=== PATIENT | female | born 1980 | race Two or more races ===

== ENCOUNTER → 2016-09-15 | Outpatient (CLI) | payer OTHER ==
--- NOTE | ~2016-09-15 | CR242 ---
[facility] A Service of [facility] & [facility] RADIOLOGY TEXT RESULTS PATIENT: FRANCES LYNCH LOCATION: [facility] : [birth year] UNIT #: [id number] AGE: [address]: MAYELA Mitchell APRN SEX: F ORDER DR: [id number] [facility] [address]. [place], [place] [address] [id number] O MR#: [id number] #: [id number] NAME: FRANCES LYNCH : 1980 SEX: F STUDY DATE/TIME: 09/15/2016 10:59 UNIT: [facility] ROOM: STUDY DESCRIPTION: CR Thoracic Spine 2 Views Attending Physician: Mayela Nichole Aprn Referring Physician: Mayela Nichole Aprn Ordering Physician: Mayela Nichole Aprn Primary Care Physician: Mayela Nichole Aprn MEDICAL IMAGING REPORT This report is preliminary unless electronic signature is present EXAM Thoracic spine series. HISTORY Upper and lower back pain for the past 2 months. TECHNIQUE 3 views of the thoracic spine were obtained. FINDINGS AP and lateral examination of the dorsal segment shows normal mineralization and a satisfactory anatomical dorsal kyphosis. All body heights, interspaces, and posterior elements are normal anatomically without any indication of malignancy, trauma, unusual paraspinal soft tissue density mass, or congenital defect. IMPRESSION Normal thoracic spine. Dictated by... Kyler Morris M.D. THIS IS AN ELECTRONICALLY VERIFIED REPORT Kyler Morris M.D. at 09/15/2016 4:29 PM DAMIAN/iza TD: 09/15/2016 16:17 JOB #: [id number] MEDICAL IMAGING REPORT Page 1 of 1 COPY
--- NOTE | ~2016-09-15 | CR181 ---
[facility] A Service of [facility] RADIOLOGY TEXT RESULTS PATIENT: FRANCES LYNCH LOCATION: [facility] : [birth year] UNIT #: [id number] AGE: [address]: MAYELA Mitchell APRN SEX: F ORDER DR: [id number] [facility] [address]. [place], [place] [address] [id number] O MR#: [id number] Acc #: [id number] NAME: FRANCES LYNCH : 1980 SEX: F STUDY DATE/TIME: 09/15/2016 10:59 UNIT: [facility] ROOM: STUDY DESCRIPTION: CR Lumbar Spine 2 or 3 Views Attending Physician: Mayela Nichole Aprn Referring Physician: Mayela Nichole Aprn Ordering Physician: Mayela Nichole Aprn Primary Care Physician: Mayela Nichole Aprn MEDICAL IMAGING REPORT This report is preliminary unless electronic signature is present EXAM Lumbar spine series. DATE OF EXAM 09/15/2016 HISTORY Upper and lower back pain for the past 2 months. TECHNIQUE 3 views of the lumbar spine were obtained. FINDINGS Alignment is satisfactory. Disc space height is preserved. There is mild facet hypertrophy at L4-5 and L5-S1. No pars defects are noted. No acute bony abnormalities are seen. IMPRESSION Mild facet hypertrophy L4-5 and L5-S1. Otherwise, negative. Dictated by... Kyler Morris M.D. THIS IS AN ELECTRONICALLY VERIFIED REPORT Kyler Morris M.D. at 09/15/2016 4:29 PM DAMIAN/duane TD: 09/15/2016 16:22 JOB #: [id number] MEDICAL IMAGING REPORT Page 1 of 1 COPY
== END | disposition home or self-care (01) ==
LOC: CRAD 10:34
DX: M54.41 Lumbago with sciatica, right side (principal); M53.86 Other specified dorsopathies, lumbar region
CPT/HCPCS: 72070; 72100